=== PATIENT | male | born 1985 | race Caucasian/White ===

== ENCOUNTER 2017-03-20 14:14 | Emergency (ER) | payer OTHER ==
[~2017-03-20 14:14] MED LIST: ACET500; CYCL10 PO; GABA800 PO; IBUP600 PO; IBUP800 PO; Mobic15 MG PO; Neurontin 100100 MG PO
== END 2017-03-20 16:38 | disposition left against medical advice (07) ==
LOC: ER 14:14
DX: Z53.21 Procedure and treatment not carried out due to patient leaving prior to being seen by health care provider (principal)

== ENCOUNTER 2017-04-13 19:20 | Emergency (ER) | payer OTHER ==
[~2017-04-13] VITALS: Ht 172.7 cm; Wt 68.0 kg
[2017-04-13] MEDS ORDERED: PROM25 PO (20:36)
== END 2017-04-13 20:58 | disposition home or self-care (01) ==
LOC: ER 19:20
DX: R11.0 Nausea (principal); F41.9 Anxiety disorder, unspecified; R00.2 Palpitations; F17.210 Nicotine dependence, cigarettes, uncomplicated; F10.239 Alcohol dependence with withdrawal, unspecified; Z79.899 Other long term (current) drug therapy
CPT/HCPCS: 36415; 80053; 83690; 85025; 93005; 93010; 96361; 96372; 96374; 96376; 99283; J2405; J2550; J7030

== ENCOUNTER 2017-09-24 20:55 | Emergency (ER) | payer OTHER ==
[~2017-09-24] VITALS: Ht 172.7 cm; Wt 65.8 kg
[~2017-09-24 20:55] MED LIST changes: +PROM25 PO
[2017-09-24 22:42] LABS: BASOPHILS ABSOLUTE AUTO 0.08 K/mm3 (0.00-0.23); BASOPHILS PERCENT AUTO 1 % (0-2); EOSINOPHILS ABSOLUTE AUTO 0.29 K/mm3 (0.00-0.68); EOSINOPHILS PERCENT AUTO 3 % (0-6); Hematocrit 39.9 % (37.0-53.0); Hemoglobin 13.6 g/dL (13.5-17.5); IMMATURE GRAN ABSOLUTE AUTO 0.01 K/mm3 (0.00-0.10); IMMATURE GRAN PERCENT AUTO 0 % (0-1); LYMPHOCYTES ABSOLUTE AUTO 3.37 K/mm3 (0.84-5.20); LYMPHOCYTES PERCENT AUTO 39 % (21-46); MONOCYTES ABSOLUTE AUTO 0.63 K/mm3 (0.16-1.47); MONOCYTES PERCENT AUTO 7 % (4-13); Mean Corpuscular HGB 32.5 pg (26.0-34.0); Mean Corpuscular HGB Conc 34.1 g/dL (31.5-36.5); Mean Corpuscular Volume 96 fL (80-100); NEUTROPHILS ABSOLUTE AUTO 4.34 K/mm3 (1.96-9.15); NEUTROPHILS PERCENT AUTO 50 % (41-73); Platelet Count 115 K/mm3 (150-400); RDW Coefficient Variation 14.2 % (11.7-14.2); RDW Standard Deviation 50.3 fL (35.1-46.3); Red Blood Cell Count 4.18 M/mm3 (4.30-5.90); White Blood Cell Count 8.72 K/mm3 (4.00-11.30)
[2017-09-24 22:57] LABS: Alanine Aminotransfer (ALT/SGP 66 U/L (12-78); Albumin, Blood 3.9 g/dL (3.4-5.0); Albumin/Globulin Ratio 0.9 (0.8-1.8); Alk Phos 74 U/L (50-136); Anion Gap 10 mmol/L (6-16); Aspartate Aminotrans (AST/SGOT 59 U/L (12-37); Bilirubin, Total 0.5 mg/dL (0.1-1.0); Blood Urea Nitrogen 5 mg/dL (8-24); Bun/Creatinine Ratio 8.1 (12.0-20.0); CO2, Blood 24 mmol/L (21-32); Calcium, Blood 8.9 mg/dL (8.5-10.1); Chloride, Blood 105 mmol/L (98-108); Creatinine, Blood 0.62 mg/dL (0.60-1.20); Globulin, Blood 4.4 g/dL (2.2-4.0); Glomerular Filtration Rate >60 (60-); Glucose, Blood 106 mg/dL (70-99); Potassium, Blood 3.7 mmol/L (3.5-5.5); Sodium, Blood 139 mmol/L (136-145); Total Protein, Blood 8.3 g/dL (6.4-8.2)
[2017-09-25] MEDS ORDERED: CHLO25 PO (04:26)
[2017-09-25] MEDS ORDERED: Protonix40 MG PO (04:26)
[2017-09-25] MEDS ORDERED: Zofran Odt8 MG SL (04:26)
== END 2017-09-25 05:39 | disposition home or self-care (01) ==
LOC: ER 20:55
PROVIDERS: Emergency Medicine
DX: K29.20 Alcoholic gastritis without bleeding (principal); F10.239 Alcohol dependence with withdrawal, unspecified; Z59.0 Homelessness
CPT/HCPCS: 36415; 80053; 83690; 85025; 93005; 93010; 99285-25